=== PATIENT | female | born 2000 | race Caucasian/White ===

== ENCOUNTER 2021-10-12 14:56 | Emergency (ER) | payer BC, SELFPAY ==
[2021-10-12 15:11] VITALS: BP 128/73; PULSE 85; RESP 17; TEMP 36.9; O2SAT 97; BMI 32.8
[2021-10-12 15:22] LABS: Pregnancy Test Urine Negative (Negative)
[2021-10-12 15:27] LABS: Appearance Urine UA CLEAR; Bilirubin Urine UA NEGATIVE (NEGATIVE); Color Urine UA YELLOW; Glucose Urine UA NEGATIVE (Negative); Ketones Urine UA TRACE (NEGATIVE); Leukocyte Esterase Urine UA NEGATIVE (NEGATIVE); Nitrite Urine UA NEGATIVE (Negative); Occult Blood Urine UA 3+ (Negative); Protein Urine UA 1+ (Negative); Specific Gravity Urine UA 1.015 (1.000-1.035); Urobilinogen Urine UA 0.2 E.U./dL (0.2)
[2021-10-12 15:28] LABS: Amorphous Sediment Urine 3+; RBC Urine 5-10/HPF (0-5/HPF); Squamous Epithelial Cell Urine 10-30 /HPF (0-5/HPF); WBC Urine None Seen (0-5/HPF)
[2021-10-12 15:29] LABS: Bacteria Urine Occasional (0-1); Culture Indicated Urine Cult Not Indicated; Urine Comments NO SPIN
--- NOTE | 2021-10-12 15:38 | ED_ITS ---
HPI - Abdominal Pain <Wes Figueroa PA-C - Last Filed: 10/12/21 15:49> General Chief Complaint: Abdominal Pain Stated Complaint: Sharp Pain Abd, Tingling Hands, Dry Mouth Time Seen by Provider: 10/12/21 15:02 Source: patient Mode of arrival: Ambulatory History of Present Illness HPI narrative: Patient is a 21-year-old female who presents to the ER today with complaint of abdominal pain that started about 1 hour ago. Patient states [place] was on [place] boat with [place] she acutely experience abdominal pain in her lower mid abdominal area. Patient states the pain did not radiate and felt like a stabbing pain. Patient also admits to feeling nauseous but without vomiting during the episode. She was not sure as to the source of the condition so she took some meclizine that her father had. After taking the meclizine she felt fatigued. Has never had this type of abdominal pain before admits to starting her menstrual period yesterday but denies any abnormal flow in that regard. Review of Systems <Wes Figueroa PA-C - Last Filed: 10/12/21 15:49> Review of Systems Narrative: R.O.S.: General: No fever, chills, fatigue or other concerns. Cardiovascular: No chest pain, palpitations or other Cardiovascular related concerns. Respiratory: No S.O.B. or other Respiratory related concerns. HEENT: No congestion, ear pain, rhinorrhea, sore throat or tinnitus Gastrointestinal: No nausea, vomiting or other Gastrointestinal related concerns. Skin: No rash or associated abnormalities Neurological: Awake, alert and in not apparent distress. No Headaches, changes in vision or other related neurological concerns. Patient History <Wes Figueroa PA-C - Last Filed: 10/12/21 15:49> Social History Smoking Status: Never smoker Smoking Status: Never smoker alcohol intake frequency: 0-2 drinks per day Substance Use Type: does not use Exam <Wes Figueroa PA-C - Last Filed: 10/12/21 15:49> Initial Vital Signs Initial Vital Signs: Vital Signs Temperature 98.4 F 10/12/21 15:11 Pulse Rate 85 10/12/21 15:11 Respiratory Rate 17 10/12/21 15:11 Blood Pressure 128/73 10/12/21 15:11 Pulse Oximetry 97 10/12/21 15:11 Oxygen Delivery Method 10/12/21 15:11 Chest Chest: normal inspection of the chest Resp Effort & Inspection: normal respiratory effort and able to speak in complete sentences Auscultation: clear to auscultation bilaterally Percussion: percussion normal GI Inspection: normal to inspection and other (Mildly obese) Palpation: soft, No guarding, No mass, No rigid and No tender Percussion: normal to percussion Auscultation: normal bowel sounds <DO Andre Valentine Last Filed: 10/13/21 08:49> Initial Vital Signs Initial Vital Signs: Vital Signs Temperature 98.4 F 10/12/21 15:11 Pulse Rate 85 10/12/21 15:11 Respiratory Rate 17 10/12/21 15:11 Blood Pressure 128/73 10/12/21 15:11 Pulse Oximetry 97 10/12/21 15:11 Oxygen Delivery Method 10/12/21 15:11 Course <Wes Figueroa PA-C - Last Filed: 10/12/21 15:49> Orders Ordered: ED Orders 10/12/21 15:05 Test Urine Stat Urinalysis and Microscopic Stat Vital Signs Vital signs: Vital Signs - 8 hr 10/12/21 15:11 Temperature 98.4 F Pulse Rate 85 Respiratory Rate 17 Blood Pressure 128/73 Pulse Oximetry 97 Oxygen Delivery Method Room Air <DO Andre Valentine Last Filed: 10/13/21 08:49> Orders Ordered: ED Orders 10/12/21 15:05 Test Urine Stat Urinalysis and Microscopic Stat Vital Signs Vital signs: Vital Signs - 8 hr 10/12/21 15:11 Temperature 98.4 F Pulse Rate 85 Respiratory Rate 17 Blood Pressure 128/73 Pulse Oximetry 97 Oxygen Delivery Method Room Air MDM - Abdominal Pain <RILEY Beckham Last Filed: 10/12/21 15:49> Lab Data Labs: Lab Results 10/12/21 10/12/21 Range/Units 15:05 15:05 Urine Color Yellow Urine Appearance Clear Urine pH 8.0 (4.5-8.0) Ur Specific [place] 1.015 (1.000-1.035) Urine Protein 1+ H (Negative) Urine Glucose (UA) Negative (Negative) g/dL Urine Ketones Trace H (NEGATIVE) Urine Occult Blood 3+ H (Negative) Urine Nitrate Negative (Negative) Urine Bilirubin Negative (NEGATIVE) Urine Urobilinogen 0.2 (0.2) E.U./dL Ur Leukocyte Esterase Negative (NEGATIVE) Urine RBC 5-10/hpf H (0-5/HPF) Urine WBC None seen (0-5/HPF) Ur Squamous Epith Cells 10-30 /hpf H (0-5/HPF) Amorphous Sediment 3+ Urine Bacteria Occasional (0-1) (None) Ur Culture Indicated? Cult not indicated Micro UA Comment No spin Urine Test Negative (Negative) MDM Narrative Medical decision making narrative: Patient is a 21-year-old female presents to the emergency room today with complaint of abdominal pain it started about an hour ago. Patient states that the abdominal pain is totally resolved the disc time. During the onset of pain patient states that it was at a level of about 10. Patient states the pain now is about a 1 patient states only intervention was she took some meclizine that her dad had. Urine dip was unremarkable as was physical exam. Patient's concerns have totally resolved at this point in time so provider advised patient to refrain from any strenuous activity and self monitor at this time. Patient advised to return to the emergency room showed emergent concerns arise. Patient agrees with plan. <Queenie Uribe, DO - Last Filed: 10/13/21 08:49> Lab Data Labs: Lab Results 10/12/21 10/12/21 Range/Units 15:05 15:05 Urine Color Yellow Urine Appearance Clear Urine pH 8.0 (4.5-8.0) Ur Specific [place] 1.015 (1.000-1.035) Urine Protein 1+ H (Negative) Urine Glucose (UA) Negative (Negative) g/dL Urine Ketones Trace H (NEGATIVE) Urine Occult Blood 3+ H (Negative) Urine Nitrate Negative (Negative) Urine Bilirubin Negative (NEGATIVE) Urine Urobilinogen 0.2 (0.2) E.U./dL Ur Leukocyte Esterase Negative (NEGATIVE) Urine RBC 5-10/hpf H (0-5/HPF) Urine WBC None seen (0-5/HPF) Ur Squamous Epith Cells 10-30 /hpf H (0-5/HPF) Amorphous Sediment 3+ Urine Bacteria Occasional (0-1) (None) Ur Culture Indicated? Cult not indicated Micro UA Comment No spin Urine Test Negative (Negative) Discharge Plan Departure Patient Disposition: Home Clinical Impression: Abdominal pain Instructions: DI for Abdominal Pain-Adult Activity Restrictions/Additional Instructions: *You have been diagnosed with abdominal pain of unknown etiology. As we discussed, your abdominal pain has resolved without intervention at this time. I suggest you refrain from any strenuous activity involving your abdomen for the next 24hrs. I also suggest you refrain from taking any more Meclizine at this time. I suggest you take NSAIDs for any recurrent pain at this time. *What to do: *Please continue to take your regular medications as directed. [ ] New medication prescriptions sent to your pharmacy: [ ] [ ] New medication written as a paper prescription [x] No new medications given *Please follow up with your primary care provider in 2-3 days, call for an appointment. Let them know you were seen in the Emergency Department and that we ask that you be seen in follow up. We will electronically transmit a record of today's note if your PCP is in our system *If you do not have a primary care provider please contact the [facility] Resource line at [phone]. They will ask some questions about your medical history and help get you set up with a doctor in the community. *Return to Emergency Department if you should have any new, worsening or concerning symptoms, such as [fever greater than 101 F, shaking chills, worsening pain, persistent vomiting or other bothersome symptoms] Referrals: Miscellaneous,Doctor, [Primary Care Provider] - Visit Report Forms: Patient Portal/API <Queenie Uribe DO - Last Filed: 10/13/21 08:49> [facility] Attending Sugar Attestation: I was immediately available in the department for consultation. Documentation has been reviewed. I agree with assessment and plan.
== END 2021-10-12 15:43 | disposition home or self-care (01) ==
PROVIDERS: Emergency Medicine; Emergency Provider Physician Assistant
DX: R10.9 Unspecified abdominal pain (principal)
CPT/HCPCS: 81001; 81025; 99281